=== PATIENT | male | born 1990 | race Two or more races ===

== ENCOUNTER 2022-10-20 23:40 | Emergency (ER) | payer SELFPAY ==
[~2022-10-20] VITALS: Ht 167.6 cm; Wt 150.0 kg
[2022-10-21 00:18] LABS: Basophils # (auto) 0.1 10 ^3/uL (0-0.2); Basophils % (auto) 0.4 % (0.0-2.0); Eosinophils # (auto) 0.3 10 ^3/uL (0-0.8); Hematocrit 43.8 % (41.0-53.0); Hemoglobin 14.2 g/dL (13.5-17.5); Lymphocytes # (auto) 3.8 10 ^3/uL (0.4-5.4); Lymphocytes % (auto) 28.9 % (10.0-50.0); Mean Corpuscular Hemoglobin 27.8 pg (28.0-32.0); Mean Corpuscular Hgb Conc. 32.5 g/dL (32.0-36.0); Mean Corpuscular Volume 85.6 fL (80.0-100.0); Monocytes # (auto) 1.1 10 ^3/uL (0-1.3); Monocytes % (auto) 8.2 % (0.0-12.0); Neutrophils % (auto) 60.5 % (37.0-80.0); Red Blood Cells 5.12 10^6/uL (4.5-5.90); Red Cell Distribution Width 13.6 % (11.8-14.3); White Blood Cell 13.2 10^3/uL (4.4-10.8)
[2022-10-21 01:06] LABS: Anion Gap 9 (5-15); BUN/Creatinine Ratio 20.9; Blood Urea Nitrogen 18 mg/dL (7-18); Carbon Dioxide 26 mmol/L (21-32); Chloride 105 mmol/L (98-107); GFR African American 133 mL/min; GFR Non-African American 110 mL/min; Glucose 135 mg/dL (74-106); Sodium 140 mmol/L (136-145)
[2022-10-21 01:07] LABS: Alanine Aminotransferase 44 U/L (16-61); Albumin 3.7 g/dL (3.4-5.0); Alkaline Phosphatase 124 U/L (45-117); Aspartate Aminotransferase 19 U/L (15-37); Bilirubin, Total 0.2 mg/dL (0.2-1.0); Magnesium 2.2 mg/dL (1.6-2.6); Total Protein 7.6 g/dL (6.4-8.2)
[2022-10-21] MEDS ORDERED: DICY10CA PO (02:15)
[2022-10-21] MEDS ORDERED: ONDA-144 PO (02:15)
[2022-10-21] MEDS ORDERED: ACET-1158 PO (02:15)
[2022-10-21 03:00] VITALS: BP 155/98
== END 2022-10-21 03:00 | disposition home or self-care (01) ==
LOC: ER 23:40
DX: R07.89 Other chest pain (principal); R10.9 Unspecified abdominal pain; R11.0 Nausea; I10 Essential (primary) hypertension
CPT/HCPCS: 36415; 71045; 80053; 83735; 83880; 84443; 84484; 85025; 93005